=== PATIENT | female | born 1975 | race Caucasian/White ===

== ENCOUNTER 2016-03-30 12:46 | Emergency (ER) | payer OTHER ==
[~2016-03-30 12:46] MED LIST: LITH300C3 PO; RISP1 PO
== END 2016-03-30 14:04 | disposition left against medical advice (07) ==
LOC: EMS 12:54
DX: N64.4 Mastodynia (principal); R11.0 Nausea; Z53.21 Procedure and treatment not carried out due to patient leaving prior to being seen by health care provider

== ENCOUNTER 2017-03-11 19:00 | Emergency (ER) | payer OTHER ==
[~2017-03-11] VITALS: Ht 162.6 cm; Wt 72.7 kg
[2017-03-11 21:22] LABS: BASOPHILS % (AUTO) 1.3 % (0.0-2.0); EOSINOPHILS % (AUTO) 1.7 % (1.0-6.0); HEMATOCRIT 40.2 % (36-46); HEMOGLOBIN 13.6 g/dL (12.0-16.0); LYMPHOCYTES # (AUTO) 2.4 K/uL (1.0-4.8); LYMPHOCYTES % (AUTO) 41.8 % (22.0-44.0); MEAN CORPUSCULAR HEMOGLOBIN 32.3 pg (26.0-34.0); MEAN CORPUSCULAR HGB CONC 33.8 G/dL (31.0-37.0); MEAN CORPUSCULAR VOLUME 96 fL (80-100); MONOCYTES # (AUTO) 0.3 K/uL (0.1-1.0); MONOCYTES % (AUTO) 5.5 % (2.0-9.0); NEUTROPHILS # (AUTO) 2.8 K/uL (1.8-7.7); NEUTROPHILS % (AUTO) 49.7 % (40.0-70.0); PLATELET COUNT (AUTO) 239 K/uL (150-450); RED BLOOD CELL COUNT(AUTO) 4.21 MIL/uL (4.00-5.20)
[2017-03-11 21:32] LABS: ANION GAP 4 mmol/L (8-16); CALCIUM, TOTAL 9.1 mg/dL (8.8-10.5); CARBON DIOXIDE 32 mmol/L (22-29); CHLORIDE 99 mmol/L (98-107); CREATININE 1.11 mg/dL (0.60-1.30); GLOMERULAR FILTR. RATE CALC 55 mL/min (>60); GLUCOSE,RANDOM 86 mg/dL (70-110); POTASSIUM 4.2 mmol/L (3.5-5.1); SODIUM SERUM 135 mmol/L (136-145); UREA NITROGEN, BLOOD 19 mg/dL (7-18)
[2017-03-11 21:46] LABS: ALANINE AMINOTRANSFERASE 23 U/L (12-78); ALBUMIN 3.6 g/dL (3.4-5.0); ALKALINE PHOSPHATASE 66 U/L (46-116); ASPARTATE AMINOTRANSFERASE 18 U/L (15-37); BILIRUBIN,TOTAL 0.2 mg/dL (0.1-1.0); TOTAL PROTEIN, SERUM 7.2 g/dL (6.4-8.2)
[2017-03-11 22:22] VITALS: BP 126/80
== END 2017-03-11 22:24 | disposition home or self-care (01) ==
LOC: EMS 19:01
DX: F41.9 Anxiety disorder, unspecified (principal); F20.9 Schizophrenia, unspecified; F17.210 Nicotine dependence, cigarettes, uncomplicated
CPT/HCPCS: 36415; 80053; 85025; 99284; 99406; G0480

== ENCOUNTER 2017-03-30 14:16 | Inpatient (IN) | payer MEDICAID, OTHER ==
[~2017-03-30] VITALS: Ht 167.6 cm; Wt 77.7 kg
[~2017-03-30 14:16] MED LIST changes: -LITH300C3 PO; -RISP1 PO; +RISP2 PO
[2017-03-30 15:09] LABS: BASOPHILS % (AUTO) 0.5 % (0.0-2.0); EOSINOPHILS % (AUTO) 0.5 % (1.0-6.0); HEMATOCRIT 37.2 % (36-46); HEMOGLOBIN 12.6 g/dL (12.0-16.0); LYMPHOCYTES # (AUTO) 1.5 K/uL (1.0-4.8); LYMPHOCYTES % (AUTO) 23.9 % (22.0-44.0); MEAN CORPUSCULAR HEMOGLOBIN 31.5 pg (26.0-34.0); MEAN CORPUSCULAR HGB CONC 33.8 G/dL (31.0-37.0); MEAN CORPUSCULAR VOLUME 93 fL (80-100); MONOCYTES # (AUTO) 0.8 K/uL (0.1-1.0); MONOCYTES % (AUTO) 12.7 % (2.0-9.0); NEUTROPHILS # (AUTO) 3.8 K/uL (1.8-7.7); NEUTROPHILS % (AUTO) 62.4 % (40.0-70.0); PLATELET COUNT (AUTO) 193 K/uL (150-450); RED BLOOD CELL COUNT(AUTO) 3.99 MIL/uL (4.00-5.20)
[2017-03-30 15:17] LABS: ANION GAP 8 mmol/L (8-16); CALCIUM, TOTAL 9.1 mg/dL (8.8-10.5); CARBON DIOXIDE 31 mmol/L (22-29); CHLORIDE 101 mmol/L (98-107); CREATININE 0.78 mg/dL (0.60-1.30); GLOMERULAR FILTR. RATE CALC > 60 mL/min (>60); GLUCOSE,RANDOM 96 mg/dL (70-110); POTASSIUM 3.9 mmol/L (3.5-5.1); SODIUM SERUM 140 mmol/L (136-145); UREA NITROGEN, BLOOD 14 mg/dL (7-18)
[2017-03-30 15:23] LABS: ALANINE AMINOTRANSFERASE 34 U/L (12-78); ALBUMIN 3.8 g/dL (3.4-5.0); ALKALINE PHOSPHATASE 54 U/L (46-116); ASPARTATE AMINOTRANSFERASE 26 U/L (15-37); BILIRUBIN,TOTAL 0.3 mg/dL (0.1-1.0); TOTAL PROTEIN, SERUM 7.2 g/dL (6.4-8.2)
[2017-03-30 16:03] LABS: AMPHET/METH SCREEN,URINE POSITIVE (NEGATIVE); BARBITURATE SCREEN, URINE NEGATIVE (NEGATIVE); BENZODIAZEPINES SCREEN,URINE NEGATIVE (NEGATIVE); CANNABINOID SCREEN,URINE POSITIVE (NEGATIVE); COCAINE SCREEN,URINE NEGATIVE (NEGATIVE); METHADONE SCREEN, URINE NEGATIVE (NEGATIVE); OPIATE SCREEN,URINE NEGATIVE (NEGATIVE)
[2017-03-30 16:04] LABS: PHENCYCLIDINE SCREEN,URINE NEGATIVE (NEGATIVE)
[2017-03-30] MEDS ORDERED: ZOLPIDEM TARTRATE 10 MG TABLET PO PRN (17:45)
[2017-03-30 18:22] LABS: FREE T4 (FREE THYROXINE) 0.96 ng/dL (0.76-1.46); THYROID STIMULATING HORMONE 2.33 uIU/mL (0.36-3.74)
[2017-03-30] MEDS ORDERED: INFLUENZA VIRUS VACCINE QVS 2017-18 (3YR+)/PF 60 MCG/0.5 ML SYRINGE IM ONE (20:00)
[2017-03-30] MEDS: LORazepam 2 MG TABLET PO PRN (20:27)
[2017-03-30] MEDS: RisperiDONE 2 MG TABLET PO SCH (20:27)
[2017-03-30] MEDS: HALOPERIDOL 5 MG TABLET PO PRN (20:27)
[2017-03-31] MEDS ORDERED: HALOPERIDOL LACTATE 5 MG/ML VIAL ONE (01:13)
[2017-03-31] MEDS ORDERED: LORazepam 2 MG/ML VIAL IM ONE (01:15)
[2017-03-31] MEDS ORDERED: HALOPERIDOL LACTATE 5 MG/ML VIAL IM ONE (01:15)
[2017-03-31] MEDS ORDERED: DiphenhydrAMINE HCL 50 MG/ML VIAL IM ONE (01:15)
[2017-03-31 01:30] VITALS: BP 112/66
[2017-03-31] MEDS ORDERED: IBUPROFEN 400 MG TABLET PO PRN (09:30)
[2017-03-31] MEDS ORDERED: ACETAMINOPHEN 325 MG TABLET PO PRN (09:30)
[2017-03-31] MEDS: NICOTINE 7 MG/24 HOUR PATCH TD SCH (09:39)
[2017-03-31] MEDS: RisperiDONE 2 MG TABLET PO SCH ×2 (09:39→16:45)
[2017-03-31 16:02] VITALS: BP 113/72
[2017-03-31] MEDS: HALOPERIDOL 5 MG TABLET PO PRN (16:13)
[2017-03-31] MEDS: LORazepam 2 MG TABLET PO PRN (16:13)
[2017-04-01 07:59] VITALS: BP 100/63
[2017-04-01 09:01] LABS: THYROID STIMULATING HORMONE 0.99 uIU/mL (0.36-3.74)
[2017-04-01] MEDS: NICOTINE 7 MG/24 HOUR PATCH TD SCH (09:23)
[2017-04-01] MEDS: RisperiDONE 2 MG TABLET PO SCH ×2 (09:23→16:03)
[2017-04-01] MEDS: LORazepam 2 MG TABLET PO PRN ×2 (09:26→16:03)
[2017-04-01 09:28] VITALS: BP 100/63
[2017-04-01 09:35] LABS: HEMOGLOBIN A1C 5.6 % (4.5-6.2)
[2017-04-01] MEDS: HALOPERIDOL 5 MG TABLET PO PRN (16:03)
[2017-04-01 16:15] VITALS: BP 123/68
[2017-04-02 02:26] VITALS: BP 118/80
[2017-04-02 08:26] VITALS: BP 126/63
[2017-04-02] MEDS: LORazepam 2 MG TABLET PO PRN ×2 (08:34→16:07)
[2017-04-02] MEDS: NICOTINE 7 MG/24 HOUR PATCH TD SCH (08:35)
[2017-04-02] MEDS: RisperiDONE 2 MG TABLET PO SCH ×2 (08:35→16:07)
[2017-04-02 16:00] VITALS: BP 123/93
[2017-04-02] MEDS: HALOPERIDOL 5 MG TABLET PO PRN (16:09)
[2017-04-03 06:38] VITALS: BP 121/81
[2017-04-03 08:41] VITALS: BP 124/89
[2017-04-03] MEDS: HALOPERIDOL 5 MG TABLET PO PRN (08:46)
[2017-04-03] MEDS: NICOTINE 7 MG/24 HOUR PATCH TD SCH (08:46)
[2017-04-03] MEDS: LORazepam 2 MG TABLET PO PRN (08:46)
[2017-04-03] MEDS: RisperiDONE 2 MG TABLET PO SCH ×2 (08:46→16:07)
== END 2017-04-03 17:54 | disposition home or self-care (01) | DRG 750 ==
LOC: EMS 14:17 → B3A 18:16
PROVIDERS: ADMIT Psychiatry & Neurology Child & Adolescent Psychiatry; ATTEND Psychiatry & Neurology Child & Adolescent Psychiatry
PROC: 3E0234Z Introduction of Serum, Toxoid and Vaccine into Muscle, Percutaneous Approach (ICD-10-PCS; principal; 2017-03-30)
DX: F20.0 Paranoid schizophrenia (principal); F15.10 Other stimulant abuse, uncomplicated; F17.200 Nicotine dependence, unspecified, uncomplicated; F10.10 Alcohol abuse, uncomplicated; F41.9 Anxiety disorder, unspecified; R00.0 Tachycardia, unspecified; Z79.899 Other long term (current) drug therapy; Z23 Encounter for immunization
CPT/HCPCS: 83036; 84439; 84443; 87081; 99285; 99406; G0480; J1200; J1630; J2060

== ENCOUNTER 2017-08-26 13:20 | Emergency (ER) | payer MEDICAID, OTHER ==
[~2017-08-26] VITALS: Ht 167.6 cm; Wt 65.0 kg
[2017-08-26 14:06] LABS: BASOPHILS % (AUTO) 0.8 % (0.0-2.0); EOSINOPHILS % (AUTO) 2.2 % (1.0-6.0); HEMATOCRIT 39.2 % (36-46); HEMOGLOBIN 13.5 g/dL (12.0-16.0); LYMPHOCYTES % (AUTO) 40.1 % (22.0-44.0); MEAN CORPUSCULAR HEMOGLOBIN 31.6 pg (26.0-34.0); MEAN CORPUSCULAR HGB CONC 34.4 G/dL (31.0-37.0); MEAN CORPUSCULAR VOLUME 92 fL (80-100); MONOCYTES # (AUTO) 0.3 K/uL (0.1-1.0); MONOCYTES % (AUTO) 5.9 % (2.0-9.0); NEUTROPHILS # (AUTO) 2.6 K/uL (1.8-7.7); PLATELET COUNT (AUTO) 203 K/uL (150-450); RED BLOOD CELL COUNT(AUTO) 4.25 MIL/uL (4.00-5.20); RED CELL DISTRIBUTION WIDTH 13.4 % (11.5-14.5)
[2017-08-26 14:10] LABS: APPEARANCE,URINE CLEAR (CLEAR); BILIRUBIN,URINE NEGATIVE (NEGATIVE); GLUCOSE, URINE (UA) NEGATIVE (NEGATIVE); KETONES,URINE NEGATIVE (NEGATIVE); LEUKOCYTE ESTERASE ,URINE SMALL (NEGATIVE); NITRATE,URINE NEGATIVE (NEGATIVE); OCCULT BLOOD,URINE NEGATIVE (NEGATIVE); PROTEIN,URINE NEGATIVE (NEGATIVE)
[2017-08-26 14:20] LABS: BACTERIA,URINE None Seen /HPF (None Seen); RBC,URINE None Seen /HPF (0-2); SQUAMOUS EPITHELIAL CELL,UR Few /LPF (None Seen)
[2017-08-26 14:22] LABS: ANION GAP 7 mmol/L (8-16); CALCIUM, TOTAL 8.7 mg/dL (8.8-10.5); CARBON DIOXIDE 29 mmol/L (22-29); CHLORIDE 101 mmol/L (98-107); CREATININE 0.91 mg/dL (0.60-1.30); GLOMERULAR FILTR. RATE CALC > 60 mL/min (>60); GLUCOSE,RANDOM 87 mg/dL (70-110); POTASSIUM 4.5 mmol/L (3.5-5.1); SODIUM SERUM 137 mmol/L (136-145); UREA NITROGEN, BLOOD 11 mg/dL (7-18)
[2017-08-26 14:28] LABS: ALANINE AMINOTRANSFERASE 22 U/L (12-78); ALBUMIN 3.7 g/dL (3.4-5.0); ALKALINE PHOSPHATASE 58 U/L (46-116); ASPARTATE AMINOTRANSFERASE 16 U/L (15-37); BILIRUBIN,TOTAL 0.4 mg/dL (0.1-1.0); LIPASE 169 U/L (73-393)
[2017-08-26] MEDS ORDERED: PERTUSS(ACELL),DIPH,TET VAC/PF 0.5 ML VIAL IM ONE (15:00)
[2017-08-26 15:49] VITALS: BP 116/86
== END 2017-08-26 16:02 | disposition home or self-care (01) ==
LOC: EMS 13:21
DX: N39.0 Urinary tract infection, site not specified (principal); F20.0 Paranoid schizophrenia; M25.562 Pain in left knee; F41.9 Anxiety disorder, unspecified; F17.210 Nicotine dependence, cigarettes, uncomplicated; F15.90 Other stimulant use, unspecified, uncomplicated
CPT/HCPCS: 87086; 90471; 90715; 99284; 99406